=== PATIENT | female | born 1955 | race Caucasian/White ===

== ENCOUNTER → 2024-02-09 07:41 | Outpatient (REF) | payer OTHER, MEDICARE, SELFPAY | LOC: EMG 07:41 | PROVIDERS: ATTENDING PHYSICIAN Physical Medicine & Rehabilitation; FAMILY PHYSICIAN Family Medicine | DX: M54.16 Radiculopathy, lumbar region (principal); R20.0 Anesthesia of skin | CPT/HCPCS: 95886; 95909 ==

== ENCOUNTER 2024-03-11 15:02 | Emergency (ER) | payer MEDICARE, OTHER, SELFPAY ==
[2024-03-11 15:02] VITALS: BMI 27.5
[2024-03-11 17:13] VITALS: BP 136/76
--- NOTE | 2024-03-11 18:03 | ED.GENMED ---
History of Present Illness
<Gigi Estevez, DO - Last Filed: 03/11/24 18:10>
General
Chief Complaint: Back Pain
Time Seen by Provider: 03/11/24 17:18
<Niya Chowdhury MD, Resident - Last Filed: 03/11/24 20:23>
History of Present Illness
History of Present Illness:
69-year-old female presented to the ED with right lower back pain and right calf pain with mild swelling. She has an established diagnosis with degenerative disc disease between L5 and S1. Patient sees [facility] orthopedics. Recent MRI on
03/05. She states that for the past week she has been having excruciating pain and has been using walker. Patient takes 5 mg oxycodone her last dose was at 6 AM today and her neck scheduled dose was supposed to be at 2 PM. However this medication
has not been affected and she is still in a lot of pain. Despite previous steroid epidural injection she has not experienced relief. She came to the ED seeking pain management as she is unable to bear the pain until her next appointment with the
orthopedics which is supposed to be in April 06. She also c/o right calf pain and swelling. She denies CP, SOB. She is not on any anticoagulant or antiplatelet medication.
Past History
<Niya Chowdhury MD, Resident - Last Filed: 03/11/24 20:23>
Past History
ED Past Medical History: IDDM
ED Past Surgical History: Orthopedic (Right shoulder surgery, spinal surgery)
Social History
Tobacco: Non-smoker
Alcohol: None
Drug: None
Review of Systems
<Niya Chowdhury MD, Resident - Last Filed: 03/11/24 20:23>
Review of Systems
Musculoskeletal: Reports edema (right calf ) and back pain (right lower back)
Phy Exam
<Niya Chowdhury MD, Resident - Last Filed: 03/11/24 20:23>
General Physical Exam
General Presentation: well appearing and mild distress (due to back pain )
ENT Exam
ENT Exam: EOMI
Eye Exam
Eye Exam: PERRL
Cardiovascular Exam
Cardiovascular Exam: regular rate/rhythm and no murmur
Pulmonary Exam
Pulmonary Exam: lungs clear
Gastrointestinal Exam
Gastrointestinal Exam: non tender, soft and non distended
Neurological Exam
Neurological Exam: alert, oriented x3, no motor deficits and no sensory deficits
Musculoskeletal Exam
Musculoskeletal Exam: other ( no warmth, right lower back tenderness, no step off, no swelling, restricted ROM due to pain. Right calf tenderness present. )
Course
<Gigi Estevez, DO - Last Filed: 03/11/24 18:10>
Orders/Labs/Results
Orders:
Orders
03/11/24 17:58
HYDROmorphone [Dilaudid] 0.25 mg IV NOW STA
Ketorolac [Toradol] 30 mg IV NOW STA
03/11/24 18:01
Dexamethasone Sod Phosphate [Decadron] 6 mg IV NOW STA
HYDROmorphone [Dilaudid] 1 mg IV NOW STA
03/11/24 18:03
US Periph Venous LOWER Ext RT Urgent
Comment:
Reason For Exam: right calf swelling and pain
03/11/24 19:57
HYDROmorphone [Dilaudid] 1 mg IV NOW STA
Abnormal Lab Results
03/11/24
20:18
POC Glucose 158 H mg/dl
(70-99)
Vital Signs
Initial and Last Documented VS:
Initial Vital Signs
BP
136/76
03/11/24 17:13
Last Documented Vital Signs
BP Pulse Ox
149/96 96
03/11/24 20:01 03/11/24 20:03
<Niya Chowdhury MD, Resident - Last Filed: 03/11/24 20:23>
Orders/Labs/Results
Orders:
Orders
03/11/24 17:58
HYDROmorphone [Dilaudid] 0.25 mg IV NOW STA
Ketorolac [Toradol] 30 mg IV NOW STA
03/11/24 18:01
Dexamethasone Sod Phosphate [Decadron] 6 mg IV NOW STA
HYDROmorphone [Dilaudid] 1 mg IV NOW STA
03/11/24 18:03
US Periph Venous LOWER Ext RT Urgent
Comment:
Reason For Exam: right calf swelling and pain
03/11/24 19:57
HYDROmorphone [Dilaudid] 1 mg IV NOW STA
Abnormal Lab Results
03/11/24
20:18
POC Glucose 158 H mg/dl
(70-99)
Vital Signs
Initial and Last Documented VS:
Initial Vital Signs
BP
136/76
03/11/24 17:13
Last Documented Vital Signs
BP Pulse Ox
149/96 96
03/11/24 20:01 03/11/24 20:03
<Niya Chowdhury MD, Resident - Last Filed: 03/11/24 20:23>
*Critical Care Note
Total Time (30-74mins, 75-104mins- exclusive of procedures): Not Applicable
<Niya Chowdhury MD, Resident - Last Filed: 03/11/24 20:23>
Update Note
Update Note:
69 year-old female presented with right lower back pain and right calf pain. Doppler venous ultrasound to rule out DVT. IV hydromorphone, IV Toradol, IV Decadron given for pain management. As the patient is already established diagnosis she has
to follow-up with [facility] orthopedic surgeon. She had a recent MRI on 03/05/2024 and her orthopedic doctor is aware of the results. today we will manage her pain and observe her for few hours. Vitals are stable. US is negative for DVT. Pain
is improved. Second dose of Dilaudid given. Plan is to discharge patient with increase dose of oxycodone 10 mg every 8 hours. Advised to follow up with [facility] orthopedics.
ED Attending Note
<Gigi Estevez DO - Last Filed: 03/11/24 18:10>
ED Attending Note
Patient seen and examined by attending physician: Yes
I performed the substantive portion of visit, reviewed & personally made and approve the management plan that is documented in note by myself or MARLEY.: Yes
ED Attending Note:
I have seen and evaluated the patient with a [id number] encounter. I have spoken to the resident and involved in the medical history, the physical exam, medical decision making.
Evaluation and management service: agree unless noted differently below.
Results interpretation: agree unless noted differently below.
Focused HPI: 69-year-old female presenting for evaluation of worsening right-sided back pain. This has been an ongoing issue with her and she had already received an outpatient MRI showing degenerative changes and a cyst in that area. The MRI
indicates that the cyst is pushing along the thecal sac. She has been following up with pain manage and is supposed to follow-up with spine but that is not for another month or so. Patient has been taking oxycodone with minimal to no relief. She
was initially started on gabapentin which did not help. She has received spinal injections which is also not help
Physical exam: Uncomfortable, tenderness to right sacroiliac region. Distal right extremity neurovascularly intact. Tenderness noted to right calf
Medical Decision Making: Will obtain ultrasound rule out DVT. Will give dose of Dilaudid and Toradol and will start steroids in regards to her back pain. Will continue to reassess
<Niya Chowdhury MD, Resident - Last Filed: 03/11/24 20:23>
-
Portions of this chart may have been created with voice recognition software.� Occasional wrong word or��sound alike� substitutions may have occurred due to the inherent limitations of voice recognition software.
Discharge Plan
Departure
Patient Disposition: Home (Routine Discharge)
Date of Disposition: 03/11/24
Time of Disposition: 20:15
Patient with high blood pressure during this ER visit?: No
Discharge Problem:
Chronic lower back pain
Prescriptions:
New
oxycodone 10 mg tablet
10 mg PO TID PRN (Reason: Pain) 3 Days Qty: 9 0RF
Rx Instructions:
one tablet to be taken three times a day as needed
No Action
meloxicam 7.5 mg tablet
7.5 mg PO DAILY
simvastatin 20 mg tablet
20 mg PO QPM
lisinopril 5 mg tablet
5 mg PO DAILY
Janumet 50-1,000 mg tablet
1 tab PO BID
insulin glargine [Basaglar KwikPen U-100 Insulin] 100 unit/mL (3 mL) insulin pen
30 unit SC HS
Farxiga 10 mg tablet
10 mg PO DAILY
ibuprofen 200 mg Capsule
200 mg PO Q6HPRN PRN (Reason: mild pain)
doxycycline hyclate 100 mg Capsule
100 mg PO BID Qty: 20 0RF
acetaminophen 325 mg Tablet
650 mg PO Q4HPRN PRN (Reason: Mild Pain / Temp > 101) Qty: 0 0RF
docusate sodium 100 mg Capsule
100 mg PO BID Qty: 0 0RF
Referrals:
Ninfa Cleveland MD [Family Provider] -
Interventions
Interventions:
*Risk Screen - Suicide Last Done: 03/11/24 15:18
*Neglect/Abuse Screening Last Done: 03/11/24 15:18
ED- Fall Risk Assessment Last Done: 03/11/24 15:18
*ED COVID-19 Vaccine History Last Done: 03/11/24 15:18
ED-Musculoskeletal Assessment Last Done: 03/11/24 18:51
Discharge Date and Time
Print Language: YAKUT
[2024-03-11] MEDS: DILAUDID 1 MG IV ×2 (18:28→20:03)
[2024-03-11] MEDS: DECADRON 6 MG IV (18:28)
[2024-03-11] MEDS: TORADOL 30 MG IV (18:28)
[2024-03-11 18:32] VITALS: BP 139/96
[2024-03-11 20:01] VITALS: BP 149/96
[2024-03-11 20:19] LABS: Glucose - Point of Care 158 mg/dl (70-99)
== END 2024-03-11 20:58 | disposition home or self-care (01) ==
LOC: EMR 15:02
PROVIDERS: EMERGENCY PHYSICIAN Student in an Organized Health Care Education/Training Program; FAMILY PHYSICIAN Family Medicine
DX: M54.50 Low back pain, unspecified (principal); M79.661 Pain in right lower leg; R60.0 Localized edema; G89.29 Other chronic pain; M51.37 Other intervertebral disc degeneration, lumbosacral region; E11.9 Type 2 diabetes mellitus without complications; Z79.4 Long term (current) use of insulin; Z88.1 Allergy status to other antibiotic agents; Z88.0 Allergy status to penicillin; Z88.2 Allergy status to sulfonamides; Z91.048 Other nonmedicinal substance allergy status
CPT/HCPCS: 99284; 96374; 96375 ×2; 96376; 82962; 93971

== ENCOUNTER 2024-04-12 06:01 | Day surgery (SDC) | payer MEDICARE, OTHER, SELFPAY ==
[2024-04-12] VITALS (17 sets, daily range): BP systolic 88–119; BP diastolic 44–77; BMI 27.5
[2024-04-12] MEDS: LYRICA 150 MG PO (10:39)
[2024-04-12] MEDS: NORMOSOL-R/PLASMALYTE-A 1000 IV ×2 (10:39→16:21)
[2024-04-12] MEDS: TYLENOL 1000 MG PO ×3 (10:39→21:38)
[2024-04-12] MEDS: SKELAXIN 800 MG PO ×2 (10:40→18:11)
[2024-04-12] MEDS: CELEBREX 200 MG PO (10:40)
[2024-04-12 10:49] LABS: Glucose - Point of Care 130 mg/dl (70-99)
[2024-04-12] MEDS: VANCOCIN 200 IV ×2 (11:04→23:15)
[2024-04-12] MEDS: EMEND 40 MG PO (12:00)
[2024-04-12] MEDS: DILAUDID 0.5 MG IV ×3 (14:56→15:20)
[2024-04-12 14:58] LABS: Glucose - Point of Care 149 mg/dl (70-99)
--- NOTE | 2024-04-12 15:39 | W.DS.TRANS ---
DC Summary - [facility]
-
Discharge Instructions:
Sleep Apnea Risk Low
Discharge Diagnosis/Procedures lumbar cyst
Diet Diabetic, Carb Controlled
Activity No strenuous activity
Driving Restrictions No driving
Instructions:
Stand-Alone Forms:
Changes to Home Medications: Yes
Discharge Medications:
DC Medications w/original date entered in [employer]
dapagliflozin propanediol 10 mg tablet (Farxiga) 10 mg PO DAILY Diabetes 06/22/23
insulin glargine 100 unit/mL (3 mL) subcutaneous pen (Basaglar KwikPen U-100 Insulin) 30 unit SC HS Diabetes 06/22/23
lisinopril 5 mg tablet 5 mg PO DAILY Blood Pressure 06/22/23
simvastatin 20 mg tablet 20 mg PO QPM High Cholesterol 06/22/23
sitagliptin phosphate 50 mg-metformin 1,000 mg tablet (Janumet) 1 tab PO BID Diabetes 06/22/23
docusate sodium 100 mg capsule 100 mg PO BID #0 caps 06/27/23
MetaFiber 1 cap PO DAILY 04/10/24
calcium carbonate 500 mg-vitamin D3 3.125 mcg (125 unit) tablet 1 tab PO DAILY 04/10/24
dimenhydrinate 50 mg tablet 50 mg PO DAILY 04/10/24
diphenhydramine HCl 25 mg tablet 25 mg PO DAILY 04/10/24
oxycodone 10 mg tablet 10 mg PO TID Pain 04/10/24
Saccharomyces boulardii 250 mg capsule (Florastor) 250 mg PO BID #1 cap 04/12/24
acetaminophen 325 mg capsule (Tylenol) 650 mg (2 x 325 mg) PO QID #2 caps 04/12/24
albuterol sulfate 90 mcg/actuation aerosol inhaler 2 puff inhalation Q4HPRN asthma #0 grams 04/12/24
cephalexin 500 mg capsule 500 mg PO QID infection prevention #20 caps 04/12/24
gabapentin 300 mg capsule 300 mg PO HS sleep/pain #10 caps 04/12/24
magnesium hydroxide 400 mg/5 mL oral suspension (Milk of Magnesia) 30 ml PO HS PRN Constipation #1 mL 04/12/24
mupirocin 2 % topical ointment 1 applic topical BID MRSA hx #0 grams 04/12/24
sennosides 8.6 mg tablet (Senokot) 17.2 mg (2 x 8.6 mg) PO BID laxative #2 tabs 04/12/24
tizanidine 2 mg capsule 2 mg PO TID PRN muscle relaxer/sleep #30 caps 04/12/24
Home Medication Changes
cephalexin 500 mg capsule 500 mg PO QID infection prevention #20 caps 04/12/24
gabapentin 300 mg capsule 300 mg PO HS sleep/pain #10 caps 04/12/24
mupirocin 2 % topical ointment 1 applic topical BID MRSA hx #0 grams 04/12/24
tizanidine 2 mg capsule 2 mg PO TID PRN muscle relaxer/sleep #30 caps 04/12/24
Pending Results: No
[2024-04-12] MEDS: DILAUDID 0.25 MG IV (16:05)
--- NOTE | 2024-04-12 16:30 | SUR.PHASEI ---
Patient in severe pain, medicated per orders. Excellent strengths in all limbs, dressing dry, heat to back for comfort , patient on rt side. Tami Lombardo
--- NOTE | 2024-04-12 16:37 | SUR.PHASEI ---
Pharmacy called to verify due medications. Tami Lombardo RN BSN.
--- NOTE | 2024-04-12 16:57 | SUR.PHASEI ---
Called pharmacy for meds due as only 2 meds sent. talked to Michael. Tami Lombardo RN BSN.
[2024-04-12 18:00] LABS: Glucose - Point of Care 176 mg/dl (70-99)
[2024-04-12] MEDS: GLUCOPHAGE 1000 MG PO (18:11)
[2024-04-12] MEDS: ANCEF 5 IV (18:11)
[2024-04-12] MEDS: NOVOLOG FLEXPEN-MODERATE RESISTANCE 1 UNITS SC (18:12)
[2024-04-12] MEDS: JANUVIA 50 MG PO (18:12)
[2024-04-12] MEDS: LIPITOR 10 MG PO (18:13)
[2024-04-12] MEDS: ROXICODONE 10 MG PO ×2 (18:13→21:38)
[2024-04-12] MEDS: FARXIGA PO (18:15)
--- NOTE | 2024-04-12 20:30 | PTCARENOTE ---
Received patient from PACU around 1725 via bed in stable condition. Patient oriented to room. Dressing to lower back CDI. Pain 01/23. Scheduled pain medication given. Around 1800 patient stated the need to urinate. Patient assisted to bedside commode
with assist x 2 and rolling walker with LSO in place. Patient only voided 50 ml but stated she felt like she still needed to urinate. Bladder scan performed with a result of 541 ml. Straight cath performed using aseptic technique for a result of 650
ml. Next RN aware.
[2024-04-12 21:09] LABS: Glucose - Point of Care 213 mg/dl (70-99)
[2024-04-12] MEDS: COLACE 100 MG PO (21:36)
[2024-04-12] MEDS: SENOKOT 17.2 MG PO (21:36)
[2024-04-12] MEDS: LANTUS 0.38 UNITS SC (21:37)
[2024-04-12] MEDS: LYRICA 75 MG PO (21:38)
[2024-04-13] MEDS: SKELAXIN 800 MG PO ×2 (02:33→10:19)
[2024-04-13] MEDS: ANCEF 5 IV (02:33)
[2024-04-13] MEDS: NORMOSOL-R/PLASMALYTE-A 1000 IV (02:35)
[2024-04-13 03:21] VITALS: BP 105/62
[2024-04-13] MEDS: TYLENOL 1000 MG PO ×2 (05:00→10:20)
[2024-04-13 07:30] VITALS: BP 102/69
[2024-04-13 07:56] LABS: Glucose - Point of Care 116 mg/dl (70-99)
[2024-04-13] MEDS: NOVOLOG FLEXPEN-MODERATE RESISTANCE SC (08:10)
[2024-04-13] MEDS: GLUCOPHAGE 1000 MG PO (08:11)
[2024-04-13] MEDS: SENOKOT 17.2 MG PO (08:11)
[2024-04-13] MEDS: FARXIGA 10 MG PO (08:11)
[2024-04-13] MEDS: ROXICODONE 10 MG PO (08:11)
[2024-04-13] MEDS: JANUVIA 50 MG PO (08:11)
[2024-04-13] MEDS: COLACE 100 MG PO (08:11)
[2024-04-13 08:55] LABS: Hematocrit 37.9 % (37.0-47.0)
[2024-04-13 09:50] VITALS: BP 114/73; PULSE 77; O2SAT 95
[2024-04-13 09:56] LABS: Blood Urea Nitrogen 15 mg/dl (7-17); Carbon Dioxide 28 mmol/L (22-30); Chloride 99 mmol/L (98-107); Estimated Creatinine Clearance 70 ml/min; Glucose 106 mg/dl (70-99); Potassium 4.4 mmol/L (3.5-5.1); Sodium 137 mmol/L (135-145); eGFR > 60.00
[2024-04-13] MEDS: LYRICA 75 MG PO (10:20)
[2024-04-13 10:57] VITALS: BP 120/69; PULSE 68
[2024-04-13 11:29] VITALS: BP 124/74
--- NOTE | 2024-04-13 11:41 | W.PN.ORTHO ---
Today's Communication / Plan
-
d/c
Assessment
.
Distal Motor Intact: Yes
Dressing:
Clean, dry and intact.
Plan
.
Surgery / Date: L4-5 hemilami excision of cyst,psf Dr Santana 04/12/24
Activity:
Out of bed.
PT/OT
Discharge Plan: Home
Subjective
.
.:
Patient resting comfortably.
Vital Signs and Labs
.
Vital Signs and Labs:
Lab Results
04/13/24 08:20
04/13/24 08:20
Temp Pulse Resp BP Pulse Ox
97.7 F 71 17 102/69 100
04/13/24 07:30 04/13/24 07:30 04/13/24 07:30 04/13/24 07:30 04/13/24 07:30
Physical Exam
-
HEENT: No pallor, cyanosis, or jaundice. Throat clear.
NECK: Supple. No JVD.
RESPIRATORY: Lungs clear to auscultation.
CVS: S1, S2 normal. RRR.� No murmur, rub or gallop.
ABDOMEN: Soft, non-tender. No distension. BS+/normal.
EXTREMITIES: strength equal, no calf pain with palpation
PRINTING MANAGER: AOx3. No focal deficits. associate professor of surgery grossly intact
[2024-04-13 11:58] LABS: Glucose - Point of Care 157 mg/dl (70-99)
[2024-04-13] MEDS: NOVOLOG FLEXPEN-MODERATE RESISTANCE 1 UNITS SC (12:02)
--- NOTE | 2024-04-13 12:02 | CM ---
Met with patient at bedside; initial assessment and case management consult completed
Pharmacy verified: [facility] [address]
Patient reported that she lives with her spouse in a split level home; enters via garage; 6 steps to main floor; 6 steps up to bedroom and bathroom; railings present; powder room on the 1st level of home; 2nd floor bath has tub w/shower; grab bars
present
PLOF: patient reported she was independent with ADLs, stairs, and ambulation; Works multimedia designer; drives
DME: plans to have a RW on each level of the home
NO SNF history; home health services in 07/08
PT recommends home health; patient agreeable; no agency preference; referral sent to [facility] via [employer]. Jayashree ARRIOLA notified
Daughter will provide transport home; and plans to stay a few days to provide assistance as needed
Plan: discharge to home with home health services for PT with [facility]
--- NOTE | 2024-04-13 12:51 | VNURNOTE ---
Home health liaison met with patient to discuss [facility] services, visit scheduling/frequency, homebound status and pet policy. Patient states she will be working from home for a little while. Patient understands home visits will be 1-2 times a week to
assess and teach medical management. Patient aware a visiting nurse will contact them for start of care within 1-2 days after discharge from . [facility] Referral completed in care port. [facility] brochure given to patient
[2024-04-13] MEDS: ROXICODONE 5 MG PO (14:17)
== END 2024-04-13 15:04 | disposition home health service (06) ==
LOC: SDS 06:01
PROVIDERS: Physician Assistant Medical; ATTENDING PHYSICIAN Orthopaedic Surgery Orthopaedic Surgery of the Spine; FAMILY PHYSICIAN Family Medicine
DX: M43.16 Spondylolisthesis, lumbar region (principal); M48.061 Spinal stenosis, lumbar region without neurogenic claudication; M71.38 Other bursal cyst, other site
CPT/HCPCS: 22612; 20930; 63267; 88304; 72100; 76000; 80048; 82962; 85014; 85018; 86900; 86901; 87070; 97116; 97166; 97530; 97535; C1713; C1776

== ENCOUNTER → 2025-05-18 06:32 | Outpatient (REF) | payer MEDICARE, OTHER, SELFPAY ==
[2025-05-18 07:42] LABS: Hematocrit 41.4 % (37.0-47.0); Hemoglobin 13.8 g/dL (12.0-16.0); Mean Corp Hgb Conc. 33.3 g/dL (33.0-37.0); Mean Corpuscular Volume 91.0 fL (81.0-99.0); Nucleated Red Blood Cells % 0 %; Platelet Count 219 10^3/uL (130-400); Red Cell Dist. Width 13.3 % (11.5-14.5)
[2025-05-18 08:28] LABS: Blood Urea Nitrogen 14 mg/dl (7-17); Calcium 9.1 mg/dl (8.4-10.2); Carbon Dioxide 31 mmol/L (22-30); Chloride 105 mmol/L (98-107); Glucose 99 mg/dl (70-99); Potassium 4.2 mmol/L (3.5-5.1); Sodium 140 mmol/L (135-145); eGFR > 60.00
== END ==
LOC: RCS 06:32
PROVIDERS: ATTENDING PHYSICIAN Specialist; FAMILY PHYSICIAN Physician Assistant Medical
DX: Z01.818 Encounter for other preprocedural examination (principal)
CPT/HCPCS: 36415; 80048; 85025; 93005